=== PATIENT | female | born 1960 | race Two or more races ===

== ENCOUNTER 2025-03-04 06:00 | Day surgery (SDC) | payer OTHER ==
[2025-03-04] MEDS ORDERED: fentaNYL CITRATE 50 MCG/ML AMPUL IV PUSH ONE (12:45)
[2025-03-04] MEDS ORDERED: DIPHENHYDRAMINE HCL 50 MG/ML VIAL 1ML IV ONE (12:45)
[2025-03-04] MEDS ORDERED: MIDAZOLAM HCL 2 MG/2 ML VIAL IV ONE (12:45)
== END 2025-03-04 13:00 | disposition home or self-care (01) ==
LOC: AMB-ENDOS 06:00
PROVIDERS: ATTEND Surgery
DX: D12.0 Benign neoplasm of cecum (principal); K63.5 Polyp of colon

== ENCOUNTER 2025-05-05 10:24 | Inpatient (IN) | payer OTHER ==
[~2025-05-05] VITALS: Ht 154.9 cm; Wt 77.1 kg
[2025-05-05] MEDS ORDERED: COZAAR100 MG PO (11:06)
[2025-05-13] MEDS ORDERED: CEFTRIAXONE SODIUM 2,000 MG VIAL ONE (06:44)
[2025-05-13] MEDS ORDERED: METRONIDAZOLE/SODIUM CHLORIDE 500 MG/100 ML PIGGYBACK IV ONE (06:45)
[2025-05-13] MEDS ORDERED: LIDOCAINE HCL 1%/EPINEPHRINE 20ML VIAL IJ ONE (07:11)
[2025-05-13] MEDS ORDERED: BUPIVACAINE HCL/MPF 0.5% 30ML VIAL ONE (07:11)
[2025-05-13] MEDS ORDERED: GABAPENTIN 300 MG CAPSULE PO SCH (09:00)
[2025-05-13] MEDS ORDERED: DEXTROSE 50 % IN WATER 0.5 G/ML DISP.SYRIN IV PRN (09:00)
[2025-05-13] MEDS ORDERED: RINGERS SOLUTION,LACTATED 1,000 ML IV SCH (09:00)
[2025-05-13] MEDS ORDERED: FAMOTIDINE/PF 20 MG/2 ML VIAL IV PUSH SCH (09:00)
[2025-05-13] MEDS ORDERED: MORPHINE SULFATE 4 MG/ML CARTRIDGE IV PRN (09:00)
[2025-05-13] MEDS ORDERED: OxyCODONE HCL 5 MG TABLET (ROXICODONE) PO PRN (09:00)
[2025-05-13] MEDS ORDERED: ONDANSETRON HCL 2 MG/ML VIAL IV PRN (09:00)
[2025-05-13 10:58] LABS: BASO % 0.3 % (0.1-1.2); EOS # 0.10 (0.04-0.54); EOS % 1.6 % (0.7-7.0); LYMPH # 1.66 (1.18-3.74); LYMPH % 25.8 % (19.3-53.1); MEAN PLATELET VOLUME 10.70 fl (9.4-12.4); MONO # 0.44 (0.24-0.82); MONO % 6.8 % (4.7-12.5); NEUT # 4.19 (1.56-6.13); NEUT % 65.0 % (34.0-71.1); RED CELL DISTRIBUTION WIDTH 12.3 % (11.6-14.4)
[2025-05-13 12:01] LABS: BUN CREA RATIO 10.0 (7.0-25.0); CREATININE SERUM 0.78 mg/dL (0.55-1.02); GFR 73.89; GLUCOSE FASTING 102.0 mg/dL (65-100); OSMOLALITY SERUM 283.0 MOSM/KG (275-295)
[2025-05-13] MEDS ORDERED: ENALAPRILAT DIHYDRATE 1.25 MG/ML VIAL IV PRN (12:30)
[2025-05-13] MEDS ORDERED: ACETAMINOPHEN 500 MG GEL..CAP PO SCH (14:00)
[2025-05-13 16:00] VITALS: BP 128/69; O2SAT 93
[2025-05-13] MEDS ORDERED: GABAPENTIN 300 MG CAPSULE PO ONE (16:11)
[2025-05-14 00:30] VITALS: BP 116/73; O2SAT 100
[2025-05-14 08:26] VITALS: BP 115/68; O2SAT 94
[2025-05-14] MEDS ORDERED: LOSARTAN POTASSIUM 100 MG TABLET PO SCH (09:00)
[2025-05-14 09:27] LABS: BASO % 0.3 % (0.1-1.2); EOS # 0.21 (0.04-0.54); EOS % 3.4 % (0.7-7.0); LYMPH # 2.11 (1.18-3.74); LYMPH % 34.6 % (19.3-53.1); MEAN PLATELET VOLUME 11.00 fl (9.4-12.4); MONO # 0.43 (0.24-0.82); MONO % 7.0 % (4.7-12.5); NEUT # 3.31 (1.56-6.13); NEUT % 54.4 % (34.0-71.1); RED CELL DISTRIBUTION WIDTH 12.3 % (11.6-14.4)
[2025-05-14 10:28] LABS: BUN CREA RATIO 10.0 (7.0-25.0); CREATININE SERUM 0.78 mg/dL (0.55-1.02); GFR 73.89; GLUCOSE FASTING 82.0 mg/dL (65-100); OSMOLALITY SERUM 288.0 MOSM/KG (275-295)
[2025-05-14 16:00] VITALS: BP 133/62; O2SAT 90
[2025-05-14] MEDS ORDERED: ENOXAPARIN SODIUM 40 MG/0.4 ML SYRINGE SUBCUTANEO SCH (17:00)
[2025-05-15 01:29] VITALS: BP 144/78; O2SAT 98
[2025-05-15 08:16] VITALS: BP 149/72; O2SAT 94
[2025-05-15] MEDS ORDERED: ENOXAPARIN SODIUM 40 MG/0.4 ML SYRINGE SUBCUTANEO SCH (09:00)
[2025-05-15] MEDS ORDERED: PEPCID AC20 MG PO (10:43)
[2025-05-15] MEDS ORDERED: TRAM1TAB98 PO (10:44)
[2025-05-15] MEDS ORDERED: LEVSIN/SL0.125 MG SL (10:44)
== END 2025-05-15 15:14 | disposition home or self-care (01) | DRG 331 ==
LOC: SURH 05-13 06:00 → O/R 05-13 06:00 → SURH 05-13 07:00
PROVIDERS: ADMIT Surgery; ATTEND Surgery
PROC: 0DBH4ZZ Excision of Cecum, Percutaneous Endoscopic Approach (ICD-10-PCS; principal; 2025-05-13 07:00)
DX: D12.0 Benign neoplasm of cecum (principal); D37.4 Neoplasm of uncertain behavior of colon